=== PATIENT | female | born 1960 | race Caucasian/White ===

== ENCOUNTER 2016-09-19 05:38 | Day surgery (SDC) | payer OTHER ==
[2016-09-19] MEDS ORDERED: CLINDAMYCIN 600 MG/DEXTROSE 50 ML IV ONE (06:30)
[2016-09-19] MEDS ORDERED: BUPIVACAINE 0.5% 30 ML SDV ONE (07:05)
[2016-09-19] MEDS ORDERED: fentaNYL 100 MCG/2 ML INJ ONE ×2 (07:07→07:42)
[2016-09-19] MEDS ORDERED: PROPOFOL 200 MG/20 ML VIAL ONE (07:07)
[2016-09-19] MEDS ORDERED: DEXAMETHASONE 4 MG/ML VIAL ONE ×2 (07:07)
[2016-09-19] MEDS ORDERED: KETOROLAC 30 MG/1 ML SDV ONE (07:07)
[2016-09-19] MEDS ORDERED: LIDOCAINE 2% 5 ML SDV ONE (07:08)
[2016-09-19] MEDS ORDERED: ONDANSETRON 4 MG/2 ML VIAL ONE (07:08)
[2016-09-19] MEDS ORDERED: MIDAZOLAM 2 MG/2 ML VIAL ONE (07:10)
[2016-09-19] MEDS ORDERED: SKIN ADHESIVE (DERMABOND) 1 EACH TP ONE (07:51)
--- NOTE | 2016-09-19 08:56 | GOP ---
[f rep st] OPERATIVE REPORT DATE OF OPERATION: SURGEON: Alicia Tirado MD PREOPERATIVE DIAGNOSIS: Left breast cancer. POSTOPERATIVE DIAGNOSIS: PROCEDURE PERFORMED: Re-excision of anterior margin. FINDINGS: Seroma within lumpectomy cavity. SPECIMENS: Additional anterior margin. ESTIMATED BLOOD LOSS: 10 mL. 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 She was noted to have a positive anterior margin and opted for re-excision . DESCRIPTION OF PROCEDURE: After informed consent was obtained and preoperative antibiotics were admi nistered, the patient was taken to the operating room, placed in a supine position. SCDs were placed to bilateral lower extremities. General anesthesia was administered, and she was prepped and draped in a sterile fashion. After an appropriate surgical pause, local anesthetic was injected intraderma lly, and an elliptical incision was made around the previous lumpectomy incision using a 15 blade. Serous fluid was suctioned from the lumpectomy cavity, and additional breast tissue anterior to the l umpectomy cavity was excised using Bovie electrocautery. This was oriented with a paint kit and sent to Pathology for permanent assessment. Hemostasis was achieved using Bovie electrocautery. The awais ast tissue was reapproximated using interrupted 3-0 Vicryl sutures, and the skin was closed in 2 laye rs using interrupted 4-0 Monocryl deep dermal sutures, followed by 4-0 Monocryl running subcuticular suture. Dermabond was placed. Additional local anesthetic was injected into the lumpectomy cavity. The patient will be awakened from general anesthesia, extubated, and taken to the post anesthesia re covery unit. /[id number]/MODL
== END 2016-09-19 09:30 | disposition home or self-care (01) ==
LOC: FSGY 05:38
PROVIDERS: ATTEND Surgery
PROC: 0H9U0ZZ Drainage of Left Breast, Open Approach (ICD-10-PCS; principal; 2016-09-19 07:15)
PROC: 0HBU0ZX Excision of Left Breast, Open Approach, Diagnostic (ICD-10-PCS; principal; 2016-09-19 07:15)
DX: N64.89 Other specified disorders of breast (principal); C50.412 Malignant neoplasm of upper-outer quadrant of left female breast; I65.29 Occlusion and stenosis of unspecified carotid artery; I10 Essential (primary) hypertension; F32.9 Major depressive disorder, single episode, unspecified
CPT/HCPCS: J1100; J1885; J2250; J2405; J2704; J3010

== ENCOUNTER → 2017-07-11 | Outpatient (CLI) | payer OTHER ==
[~2017-07-11] MED LIST: GADOBUTROL 10 ML VIAL IVP ONE
== END ==
LOC: FIMAGING 09:49
PROVIDERS: ATTEND Internal Medicine Hematology & Oncology
DX: C50.412 Malignant neoplasm of upper-outer quadrant of left female breast (principal); Z98.890 Other specified postprocedural states
CPT/HCPCS: 0159T; 77059; 77066; A9585; C8908; G0204

== ENCOUNTER → 2017-12-03 | Outpatient (CLI) | payer OTHER | LOC: BMCIMAGING 11:00 | PROVIDERS: ATTEND Podiatrist Foot & Ankle Surgery | DX: M77.32 Calcaneal spur, left foot (principal) ==

== ENCOUNTER → 2018-04-07 | Outpatient (CLI) | payer OTHER | LOC: FIMAGING 13:01 | PROVIDERS: ATTEND Internal Medicine Hematology & Oncology | DX: Z12.31 Encounter for screening mammogram for malignant neoplasm of breast (principal); Z85.3 Personal history of malignant neoplasm of breast ==